=== PATIENT | male | born 1975 | race Caucasian/White ===

== ENCOUNTER 2024-03-21 21:06 | Inpatient (IN) | payer OTHER, SELFPAY ==
[2024-03-21 21:47] VITALS: BMI 41.9
[2024-03-21] MEDS ORDERED: Nitroglycerin 0.4 MG TAB (25 Tab Bottle) SL PRN (23:33)
[2024-03-21] MEDS ORDERED: Acetaminophen 650 MG Suppository PR PRN (23:34)
[2024-03-21] MEDS ORDERED: Ondansetron PF 4 MG/2 ML Vial IVP PRN (23:34)
[2024-03-21] MEDS ORDERED: Ondansetron ODT 4 MG TAB PO PRN (23:34)
[2024-03-22] MEDS: Acetaminophen 325 MG TAB PO SCH
[2024-03-22 00:56] LABS: Troponin I 0.104 ng/mL (< 0.028)
[2024-03-22 03:53] LABS: #Basophils 0.04 10x3/uL (0.0-0.2); %Basophils 0.4 % (0.0-1.0); %Eosinophils 0.7 % (0.0-10.0); %Lymphocytes 24.2 % (21.0-51.0); %Monocytes 10.9 % (0.0-10.0); %Neutrophils 63.5 % (42.0-75.0); Hemoglobin 16.1 g/dL (14.0-18.0); Mean Corpuscular HGB CONC 34.3 g/dL (32.0-36.0); Mean Corpuscular Hemoglobin 29.9 pg (27.0-31.0); Mean Corpuscular Volume 87.2 fL (78.0-98.0); Mean Platelet Volume 10.4 fL (7.4-10.4); Platelet Count 248 10x3/uL (130-400); RBC Distribution Width 13.5 % (11.5-14.5); Red Blood Cell (RBC) Count 5.39 mill/uL (4.70-6.10)
[2024-03-22 04:12] LABS: Anion Gap 15 mmol/L (10-20); BUN (Urea Nitrogen) 12 mg/dL (8.9-20.6); Calc. Creatinine Clearance 204 mL/min (70-130); Calcium 8.8 mg/dL (7.8-10.44); Carbon Dioxide 19 mmol/L (22-29); Cardiac Risk 4.9 (Less than 4.5); Chloride 105 mmol/L (98-107); Cholesterol 197 mg/dl (< 200 Desired); Estimated GFR 108; Glucose 93 mg/dL (70-105); HDL Cholesterol 40 mg/dL (>60 Neg Risk); LDL Cholesterol, Calculated 133 mg/dL; Potassium 3.9 mmol/L (3.5-5.1); Sodium 135 mmol/L (136-145); Triglycerides 122 mg/dL (Less than 150)
[2024-03-22 04:16] LABS: Troponin I 0.134 ng/mL (< 0.028)
[2024-03-22] MEDS: Famotidine 20 MG TAB PO SCH (08:49)
[2024-03-22] MEDS: Aspirin Chewable 81 MG TAB PO SCH (08:49)
[2024-03-22] MEDS: Hydrochlorothiazide 25 MG TAB PO SCH (08:52)
[2024-03-22] MEDS: Famotidine/PF 20 mg/2ml Vial SLOW IVP SCH (08:57)
[2024-03-22 09:42] LABS: Troponin I 0.297 ng/mL (< 0.028)
[2024-03-22] MEDS: Amlodipine 10 MG TAB PO SCH (10:21)
[2024-03-22] MEDS: Enoxaparin 30 MG (0.3 mL) SYRINGE SC SCH (16:04)
[2024-03-22] MEDS: Enoxaparin 100 MG (1 mL) SYRINGE SC SCH (16:04)
[2024-03-22] MEDS ORDERED: Communication Order-Pharmacy FS SCH (18:15)
[2024-03-22] MEDS: Sodium Chloride 0.9% 1,000 ML IV SCH (19:09)
[2024-03-22] MEDS: Rosuvastatin 20 MG TAB PO SCH (20:40)
[2024-03-22] MEDS ORDERED: Enoxaparin 100 MG (1 mL) SYRINGE SC SCH ×2 (21:00→23:59)
[2024-03-22] MEDS ORDERED: Enoxaparin 30 MG (0.3 mL) SYRINGE SC SCH ×2 (21:00→23:59)
[2024-03-23] MEDS ORDERED: Enoxaparin 100 MG (1 mL) SYRINGE SC SCH (09:00)
[2024-03-23] MEDS ORDERED: Enoxaparin 30 MG (0.3 mL) SYRINGE SC SCH (09:00)
[2024-03-23] MEDS ORDERED: Heparin 10,000 UNITS/ 10 ML VIAL ONE (10:44)
[2024-03-23] MEDS ORDERED: fentaNYL 50 mcg/mL 1 mL Vial ONE ×2 (10:44→11:48)
[2024-03-23] MEDS ORDERED: Nitroglycerin 50 MG/250 ML BOT 250 ML ONE (10:44)
[2024-03-23] MEDS ORDERED: Verapamil 5 MG/2 ML VIAL ONE ×2 (10:44→11:36)
[2024-03-23] MEDS ORDERED: Midazolam HCl 2 mg/2 ml Vial ONE ×2 (10:44→11:21)
[2024-03-23] MEDS ORDERED: TICAGRELOR 90 MG TABLET ONE (11:52)
[2024-03-23] MEDS ORDERED: Iopamidol 370 76% 100 ML VIAL ONE (12:59)
[2024-03-23] MEDS: Sodium Chloride 0.9% 500 ML IV SCH (13:13)
[2024-03-23] MEDS: Carvedilol 3.125 MG TAB PO SCH (17:11)
[2024-03-23 17:26] VITALS: TEMP 97.7
[2024-03-23 17:40] VITALS: BP 154/84
[2024-03-23] MEDS ORDERED: TICAGRELOR 90 MG TABLET PO SCH (21:00)
[2024-03-24] MEDS ORDERED: Valsartan 80 MG TAB PO SCH (09:00)
== END 2024-03-23 18:09 | disposition home or self-care (01) | DRG 322 ==
LOC: OBS 21:06 → OBSVTOIN 03-22 22:16
PROVIDERS: ADMIT Internal Medicine; ATTEND Student in an Organized Health Care Education/Training Program
PROC: 027035Z Dilation of Coronary Artery, One Artery with Two Drug-eluting Intraluminal Devices, Percutaneous Approach (ICD-10-PCS; principal; 2024-03-23)
PROC: 4A023N7 Measurement of Cardiac Sampling and Pressure, Left Heart, Percutaneous Approach (ICD-10-PCS; 2024-03-23)
PROC: B2111ZZ Fluoroscopy of Multiple Coronary Arteries using Low Osmolar Contrast (ICD-10-PCS; 2024-03-23)
DX: I21.4 Non-ST elevation (NSTEMI) myocardial infarction (principal); Z88.5 Allergy status to narcotic agent; F17.210 Nicotine dependence, cigarettes, uncomplicated; I10 Essential (primary) hypertension; Z79.899 Other long term (current) drug therapy
CPT/HCPCS: 36415; 36416; 80048; 80061; 85025; 85347; 92928; 93005; 93010; 93306; 93454; 93458; 96374; 97139; 99152; 99153; C1769; C1874; C1887; C1894; C9600; G0378; J1644; J1650; J2250; J3010; J3490; Q9967

== ENCOUNTER 2024-05-14 08:08 | Outpatient (CLI) | payer OTHER ==
[2024-05-14] MEDS ORDERED: Iopamidol 370 76% 100 ML VIAL ONE (11:01)
== END 2024-05-14 08:09 | disposition home or self-care (01) ==
LOC: CT 08:08
PROVIDERS: ATTEND Physician Assistant Medical
DX: I77.810 Thoracic aortic ectasia (principal)
CPT/HCPCS: 71275; Q9967